=== PATIENT | female | born 1970 | race Caucasian/White ===

== ENCOUNTER 2019-01-21 11:23 | Emergency (ER) | payer MEDICAID ==
[2019-01-21 13:05] LABS: URINE PH (Dip) POC 5.5 (5.0-8.5)
[2019-01-21 13:05] LABS: URINE BLOOD (Dip) POC 1+ (NEGATIVE); URINE GLUCOSE (Dip) POC Negative (NEGATIVE); URINE KETONES (Dip) POC Negative (NEGATIVE); URINE LEUKOCYTE EST (Dip) POC Negative (NEGATIVE); URINE NITRITE (Dip) POC Negative (NEGATIVE); URINE TOTAL PROTEIN POC Negative (NEGATIVE)
== END 2019-01-21 14:34 | disposition home or self-care (01) ==
LOC: FTE 11:23
DX: J06.9 Acute upper respiratory infection, unspecified (principal)
CPT/HCPCS: 71045; 81003; 81025; 99283-25